=== PATIENT | male | born 1955 | race Caucasian/White ===

== ENCOUNTER 2020-08-08 08:29 | Emergency (ER) | payer OTHER ==
[~2020-08-08] VITALS: Ht 182.9 cm; Wt 85.7 kg
[2020-08-08 08:45] VITALS: BP_SYST 186
--- NOTE | 2020-08-08 08:45 | NUR ---
Patient to ER bed 8 to gown for evaluation. Side rails up. Report given to Kenisha LANDAVERDE.
--- NOTE | 2020-08-08 08:50 | NUR ---
ER at bedside examining patient.
--- NOTE | 2020-08-08 08:51 | NUR ---
Current BS is 217
--- NOTE | 2020-08-08 08:55 | NUR ---
PT CAME INTO ER C/O DOUBLE VISION, 10/10 DAVISON X 3 WEEKS. PT REPORTS HE HAS ALSO HAD NAUSEA FOR THE LAST SEVERAL DAYS AND DECRESED APPETITE. STATES HX OF HTN, DM, HLD. PT IS AAOX4, HTN 162/110- MADE AWARE. OTHER V/S STABLE
[2020-08-08] MEDS ORDERED: ACETAMINOPHEN 500 MG TABLET PO ONE (09:00)
[2020-08-08] MEDS ORDERED: PROCHLORPERAZINE EDISYLATE 10 MG/2 ML VIAL IVP ONE (09:00)
--- NOTE | 2020-08-08 09:20 | NUR ---
# 20 gauge angiocath placed to RAC. Use of asceptic technique. Opsite placed over site. Blood return noted. Flushed with 10 cc of normal saline. No evidence of infiltration noted. Patient tolerated well.
[2020-08-08] MEDS ORDERED: ACETAMINOPHEN 500 MG TABLET ONE (09:26)
--- NOTE | 2020-08-08 09:35 | NUR ---
LAB AT THE BEDSIDE FOR BLOOD DRAW
[2020-08-08 09:42] LABS: BASOPHILS % (AUTO) 0.8 % (0.0-2.0); EOSINOPHILS # (AUTO) 0.2 K/uL (0.0-0.4); EOSINOPHILS % (AUTO) 3.1 % (0.0-4.0); HEMATOCRIT 43.5 % (36-54); HEMOGLOBIN 14.6 g/dL (14.0-18.0); LYMPHOCYTES # (AUTO) 1.5 K/uL (1.0-5.5); MEAN CORPUSCULAR HEMOGLOBIN 28 pg (27-31); MEAN CORPUSCULAR HGB CONC 34 % (32-36); MEAN CORPUSCULAR VOLUME 84 fL (79.0-98.0); MONOCYTES # (AUTO) 0.3 K/uL (0.0-1.0); MONOCYTES % (AUTO) 6.2 % (1.7-9.3); NEUTROPHILS # (AUTO) 3.2 K/uL (1.8-7.7); NEUTROPHILS % (AUTO) 60.9 % (40.0-70.0); PLATELET COUNT (AUTO) 212 K/uL (130-430); RED BLOOD CELL COUNT(AUTO) 5.18 MIL/uL (4.2-6.2); RED CELL DISTRIBUTION WIDTH 12.7 % (9.0-15.0); WHITE BLOOD COUNT (AUTO) 5.2 K/uL (4.8-10.8)
[2020-08-08 10:05] LABS: INR 1.2 (0.80-1.20); PROTHROMBIN TIME 12.6 SECS (9.5-12.5)
[2020-08-08 10:07] LABS: CALCIUM 9.2 mg/dL (8.4-11.0); CREATININE 1.12 mg/dL (0.55-1.30); POTASSIUM 4.2 mmol/L (3.5-5.1)
[2020-08-08] MEDS ORDERED: IOHEXOL 350 mgI/mL, 150 ML INFUS..BTL IV ONE (10:18)
--- NOTE | 2020-08-08 10:29 | NUR ---
Patient transported to radiology via WC, accompanied by STAFF.
--- NOTE | 2020-08-08 11:29 | NUR ---
REPORT GIVEN TO SAIMA SKINNER FOR CONTINUING CARE
[2020-08-08] MEDS ORDERED: ACET-73 PO (11:35)
--- NOTE | 2020-08-08 11:43 | NUR ---
received and in room , calm, alert, resp unlabored, skin warm and dry. communicates clearly in full complete sentences. denies cp/sob sr on monitor no ectopy
[2020-08-08 11:47] VITALS: BP_SYST 163
--- NOTE | 2020-08-08 11:55 | NUR ---
Patient given written and verbal discharge instructions and verbalizes understanding. ER MD discussed with patient the results and treatment provided. Patient in stable condition. ID arm band removed. IV catheter removed intact and dressing applied, no active bleeding. Patient educated on pain management and to follow up with PMD. Pain Scale . Opportunity for questions provided and answered.
== END 2020-08-08 11:55 | disposition home or self-care (01) ==
LOC: SED 08:29
DX: G58.9 Mononeuropathy, unspecified (principal); R51.9 Headache, unspecified; I10 Essential (primary) hypertension; E11.9 Type 2 diabetes mellitus without complications
CPT/HCPCS: 36415; 70450; 70496; 76376; 80048; 82962; 85025; 85610; 85730; 96374; 99285; J0780; Q9967

== ENCOUNTER 2020-08-09 09:57 | Emergency (ER) | payer OTHER ==
[~2020-08-09] VITALS: Ht 182.9 cm; Wt 86.2 kg
[~2020-08-09 09:57] MED LIST: ACET-73 PO
[2020-08-09 10:00] VITALS: BP_SYST 188
[2020-08-09] MEDS ORDERED: NACL 0.9% 1,000 ML IV ONE (10:45)
[2020-08-09] MEDS ORDERED: cloNIDine HCL 0.1 MG TABLET PO ONE ×2 (10:45→11:45)
[2020-08-09 11:03] LABS: BASOPHILS % (AUTO) 0.6 % (0.0-2.0); EOSINOPHILS # (AUTO) 0.1 K/uL (0.0-0.4); EOSINOPHILS % (AUTO) 2.2 % (0.0-4.0); HEMATOCRIT 47.6 % (36-54); LYMPHOCYTES # (AUTO) 1.1 K/uL (1.0-5.5); MEAN CORPUSCULAR HEMOGLOBIN 29 pg (27-31); MEAN CORPUSCULAR HGB CONC 34 % (32-36); MEAN CORPUSCULAR VOLUME 85 fL (79.0-98.0); MONOCYTES # (AUTO) 0.3 K/uL (0.0-1.0); MONOCYTES % (AUTO) 5.2 % (1.7-9.3); NEUTROPHILS # (AUTO) 4.9 K/uL (1.8-7.7); PLATELET COUNT (AUTO) 224 K/uL (130-430); RED BLOOD CELL COUNT(AUTO) 5.61 MIL/uL (4.2-6.2); RED CELL DISTRIBUTION WIDTH 12.9 % (9.0-15.0); WHITE BLOOD COUNT (AUTO) 6.5 K/uL (4.8-10.8)
[2020-08-09 11:10] LABS: CALCIUM 9.5 mg/dL (8.4-11.0); CREATININE 1.14 mg/dL (0.55-1.30); POTASSIUM 3.6 mmol/L (3.5-5.1)
[2020-08-09 11:16] LABS: ALBUMIN 4.1 g/dL (3.4-4.8); TOTAL BILIRUBIN 0.5 mg/dL (0.0-1.0)
[2020-08-09 12:00] VITALS: BP_SYST 177
== END 2020-08-09 12:00 | disposition home or self-care (01) ==
LOC: SED 10:04
DX: I10 Essential (primary) hypertension (principal); E11.9 Type 2 diabetes mellitus without complications
CPT/HCPCS: 36415; 80053; 82962; 85025; 96360; 99283; J7030